=== PATIENT | male | born 1980 | race Two or more races ===

== ENCOUNTER 2017-12-10 21:32 | Emergency (ER) | payer SELFPAY ==
[~2017-12-10] VITALS: Ht 175.3 cm; Wt 81.6 kg
--- NOTE | 2017-12-10 21:48 | NUR ---
BS 76
--- NOTE | 2017-12-11 02:21 | NUR ---
pt ambulated to bathroom with steady gait.
[2017-12-11 04:59] VITALS: BP 105/62
== END 2017-12-11 05:00 | disposition home or self-care (01) ==
LOC: ER 21:35
DX: F10.129 Alcohol abuse with intoxication, unspecified (principal)
CPT/HCPCS: 82962-TC; A4606; Z7610